=== PATIENT | female | born 1990 ===

== ENCOUNTER 2021-07-03 08:52 | Emergency (ER) | payer BC, MEDICAID ==
[~2021-07-03] VITALS: Ht 175.3 cm; Wt 111.4 kg
[2021-07-03 10:16] VITALS: TEMP 98.8
[2021-07-03 10:49] LABS: BASO % 0.9 % (0.0-2.0); EOS # 0.1 (0.0-0.7); EOS % 2.3 % (0-4.0); GRAN # 2.2 (1.4-6.5); GRAN % 51.1 % (42.2-75.2); HEMOGLOBIN 13.8 g/dl (12.5-16.0); LYMPH # 1.6 (1.2-3.4); LYMPH % 36.7 % (20.0-51.0); MEAN CELL VOLUME 86 fl (80.0-100.0); MEAN CORPUSCULAR HEMOGLOBIN 28 pg (27.0-31.0); MEAN CORPUSCULAR HGB CONC 32 g/dl (33.0-37.0); MEAN PLATELET VOLUME 9.5 fl (7.4-10.4); MONO # 0.4 (0.1-0.6); MONO % 8.8 % (1.7-9.3); PLATELET COUNT 267 K/mm3 (130-400); RED BLOOD COUNT 5.02 M/mm3 (4.10-5.30); REDCELL DISTRIBUTION WIDTH-CV 13.1 % (11.5-14.5)
[2021-07-03 10:55] LABS: MUCOUS Present /lpf; PH 6 (5-8); URINE APPEARANCE Cloudy; URINE BACTERIA Rare /hpf; URINE BILIRUBIN Negative (NEGATIVE); URINE BLOOD Negative (NEGATIVE); URINE COLOR Yellow; URINE GLUCOSE Negative (NEGATIVE); URINE KETONE Negative (NEGATIVE); URINE LEUKOCYTE ESTERASE 2+ (NEGATIVE); URINE NITRATE Negative (NEGATIVE); URINE PROTEIN(semi-quant) Negative (NEGATIVE); URINE UROBILINOGEN Negative (NEGATIVE); URINE WBC 0-2 /hpf
[2021-07-03 11:00] LABS: ALBUMIN 4.3 gm/dL (3.5-5.0); BILIRUBIN,TOTAL 0.4 mg/dL (0.0-1.0); CALCIUM 9.2 mg/dL (8.4-10.2); CREATININE, serum 0.64 (0.52-1.25); POTASSIUM 3.9 mmol/L (3.4-5.0); TOTAL PROTEIN 8.2 gm/dL (6.4-8.2)
[2021-07-03 11:01] LABS: COLLECTION METHOD CLEAN CATCH
[2021-07-03] MEDS ORDERED: ULTRAM 50MG TAB50 MG PO (14:09)
[2021-07-03] MEDS ORDERED: ZOFRAN 4MG T4 MG/TAB PO (14:09)
[2021-07-03 15:00] VITALS: BP 134/87; PULSE 72
== END 2021-07-03 15:00 | disposition home or self-care (01) ==
LOC: COL.ER 08:52
PROVIDERS: Nurse Practitioner Primary Care
DX: K80.20 Calculus of gallbladder without cholecystitis without obstruction (principal); Z32.02 Encounter for pregnancy test, result negative; Z20.822 Contact with and (suspected) exposure to COVID-19
CPT/HCPCS: J1885; Q9967

== ENCOUNTER 2021-07-20 08:19 | Day surgery (SDC) | payer MEDICAID ==
[2021-07-20] VITALS (7 sets, daily range): BP systolic 103–134; BP diastolic 63–84; PULSE 59–78; TEMP 97.6–98.3
[~2021-07-20] VITALS: Ht 175.3 cm; Wt 111.2 kg
[~2021-07-20 08:19] MED LIST: ULTRAM 50MG TAB50 MG PO; ZOFRAN 4MG T4 MG/TAB PO
[2021-07-20] MEDS ORDERED: NORCO 325 MG-51 TAB PO (11:23)
--- NOTE | 2021-07-20 12:25 | NUR ---
Pt to [facility] [place] bay [facility] via cart from PACU. Pt drowsy, but awake. Pt c/o pain to mid upper stomach. Pt states "mucho." Pt's sister at bedside. Pt restless in bed. Bandaids x4 to abdomen are clean, dry and intact. Will continue to monitor. Call light within reach.
--- NOTE | 2021-07-20 12:40 | NUR ---
Fentanyl 25mcg IVSP given for pain per PRN orders. Pt turned to left side for comfort. Will continue to monitor.
--- NOTE | 2021-07-20 12:55 | NUR ---
Pt reports pain is "better." Pt taking sips of water without difficulties. Call light within reach.
--- NOTE | 2021-07-20 13:10 | NUR ---
Pt up to restroom with stand by assistance. Pt voids without difficulties. Pt back to room and became nauseated and started dry heaving. Pt assisted to laying down. Will provide medication.
--- NOTE | 2021-07-20 13:30 | NUR ---
Zofran 4mg IV given for nausea. Pt resting in bed. Call light within reach.
--- NOTE | 2021-07-20 14:00 | NUR ---
Pt continues to rest. Pt taking applesauce without difficulties. Will continue to monitor.
--- NOTE | 2021-07-20 14:15 | NUR ---
[place] 5mg/325mg 1 tablet po given per PRN orders for pain. Will continue to monitor. Call light within reach.
--- NOTE | 2021-07-20 14:30 | NUR ---
Pt asking to go home. Will provide discharge instructions. Call light within reach.
--- NOTE | 2021-07-20 14:50 | NUR ---
Discharge instructions reviewed. Pt and sister voice understanding. Pt up to dress. Call light within reach. IV site discontinued with all parts intact.
--- NOTE | 2021-07-20 15:00 | NUR ---
Pt escorted to private car via wheel chair. Pt accompanied home by her sister.
== END 2021-07-20 15:00 | disposition home or self-care (01) ==
LOC: SDCO 08:19
PROVIDERS: Surgery
DX: K80.12 Calculus of gallbladder with acute and chronic cholecystitis without obstruction (principal); E66.9 Obesity, unspecified; Z68.36 Body mass index [BMI] 36.0-36.9, adult; Z20.822 Contact with and (suspected) exposure to COVID-19
CPT/HCPCS: J0690; J1100; J1170; J1885; J2405; J2550; J2704; J3010; J7120

== ENCOUNTER 2022-07-08 05:27 | Emergency (ER) | payer MEDICAID ==
[~2022-07-08] VITALS: Ht 175.3 cm; Wt 118.2 kg
[~2022-07-08 05:27] MED LIST changes: +NORCO 325 MG-51 TAB PO
[2022-07-08 05:30] VITALS: TEMP 96.8
[2022-07-08 05:41] LABS: BASO # 0.1 K/mm3 (0.0-0.2); BASO % 0.9 % (0.0-2.0); EOS # 0.2 K/mm3 (0.0-0.7); EOS % 3.3 % (0.0-4.0); GRAN # 1.9 K/mm3 (1.4-6.5); GRAN % 34.5 % (42.2-75.2); HEMATOCRIT 43.4 % (37.0-47.0); HEMOGLOBIN 13.9 g/dl (12.5-16.0); LYMPH # 2.8 K/mm3 (1.2-3.4); LYMPH % 50.8 % (20.0-51.0); MEAN CELL VOLUME 86 fl (80.0-100.0); MEAN CORPUSCULAR HEMOGLOBIN 28 pg (27-31); MEAN CORPUSCULAR HGB CONC 32 g/dl (33.0-37.0); MEAN PLATELET VOLUME 9.2 fl (7.4-10.4); MONO # 0.6 K/mm3 (0.1-0.6); MONO % 10.1 % (1.7-9.3); PLATELET COUNT 336 K/mm3 (130-400); RED BLOOD COUNT 5.05 M/mm3 (4.10-5.30); REDCELL DISTRIBUTION WIDTH-CV 12.3 % (11.5-14.5)
[2022-07-08 06:03] LABS: ALBUMIN 3.7 gm/dL (3.5-5.0); BILIRUBIN,TOTAL 0.3 mg/dL (0.2-1.2); C-REACTIVE PROTEIN 0.11 mg/dL (0.00-0.50); CREATININE, serum 0.79 mg/dL (0.57-1.11); POTASSIUM 3.6 mmol/L (3.5-4.5); TOTAL PROTEIN 7.3 gm/dL (6.2-8.1)
[2022-07-08 06:37] LABS: COLLECTION METHOD CLEAN CATCH
[2022-07-08 06:56] LABS: MUCOUS Present (NOT PRESENT); URINE BACTERIA Rare /hpf (NONE SEEN); URINE CALCIUM OXALATE CRYSTAL Present (NOT PRESENT)
[2022-07-08 06:57] LABS: URINE APPEARANCE Clear (CLEAR/HAZY); URINE COLOR Yellow (YELLOW); URINE GLUCOSE Negative (NEGATIVE); URINE KETONE Negative (NEGATIVE); URINE PROTEIN(semi-quant) Negative (NEGATIVE)
[2022-07-08 06:58] LABS: URINE BLOOD TRACE-INTACT (NEGATIVE); URINE NITRATE Negative (NEGATIVE); URINE UROBILINOGEN 0.2 E.U/dL (0.2-1.0)
[2022-07-08] MEDS ORDERED: ROXICODONE 55 MG/TAB PO (08:48)
[2022-07-08 08:50] VITALS: BP 116/83; PULSE 82
== END 2022-07-08 08:58 | disposition home or self-care (01) ==
LOC: COL.ER 05:27
PROVIDERS: Family Medicine
DX: N13.2 Hydronephrosis with renal and ureteral calculous obstruction (principal); Z90.49 Acquired absence of other specified parts of digestive tract; Z32.02 Encounter for pregnancy test, result negative; Z28.310 Unvaccinated for COVID-19
CPT/HCPCS: J1885; J2270; J2405; J7120; Q9967

== ENCOUNTER → 2022-09-11 | Outpatient (CLI) | payer MEDICAID ==
[~2022-09-11] MED LIST changes: +ROXICODONE 55 MG/TAB PO
== END ==
LOC: COL.RAD 15:51
DX: M54.50 Low back pain, unspecified (principal)

== ENCOUNTER 2023-08-31 19:46 | Emergency (ER) | payer MEDICAID ==
[~2023-08-31] VITALS: Ht 175.3 cm; Wt 120.9 kg
[2023-08-31 19:51] VITALS: TEMP 98.4
[2023-08-31 20:30] LABS: BASO # 0.1 K/mm3 (0.0-0.2); EOS # 0.3 K/mm3 (0.0-0.7); EOS % 4.9 % (0.0-4.0); GRAN # 1.9 K/mm3 (1.4-6.5); GRAN % 32.9 % (42.2-75.2); HEMATOCRIT 43.2 % (37.0-47.0); HEMOGLOBIN 13.8 g/dl (12.5-16.0); LYMPH # 2.9 K/mm3 (1.2-3.4); LYMPH % 50.7 % (20.0-51.0); MEAN CELL VOLUME 87 fl (80.0-100.0); MEAN CORPUSCULAR HEMOGLOBIN 28 pg (27-31); MEAN CORPUSCULAR HGB CONC 32 g/dl (33.0-37.0); MEAN PLATELET VOLUME 9.7 fl (7.4-10.4); MONO # 0.6 K/mm3 (0.1-0.6); MONO % 10.3 % (1.7-9.3); PLATELET COUNT 323 K/mm3 (130-400); RED BLOOD COUNT 4.97 M/mm3 (4.10-5.30); REDCELL DISTRIBUTION WIDTH-CV 12.5 % (11.5-14.5)
[2023-08-31 20:49] LABS: ALANINE AMINOTRANSFERASE 23 U/L (0-55); ALBUMIN 3.7 gm/dL (3.5-5.0); ALKALINE PHOSPHATASE 55 U/L (40-150); ANION GAP 9 mmol/L (7-16); AST,SGOT 17 U/L (5-34); BILIRUBIN,TOTAL 0.4 mg/dL (0.2-1.2); BLOOD UREA NITROGEN 10 mg/dL (7-19); CARBON DIOXIDE 22 mmol/L (22-29); CHLORIDE 110 mmol/L (98-107); GLUCOSE 102 mg/dL (70-99); POTASSIUM 3.8 mmol/L (3.5-4.5); SODIUM 141 mmol/L (136-145); TOTAL PROTEIN 7.7 gm/dL (6.2-8.1)
[2023-08-31 20:56] LABS: TROPONIN-I < 0.010 ng/mL (0.00-0.033)
[2023-08-31] MEDS ORDERED: PEPCID 20MG TAB20 MG PO (21:17)
[2023-08-31 22:19] VITALS: BP 133/86; PULSE 66
== END 2023-08-31 22:19 | disposition home or self-care (01) ==
LOC: COL.ER 19:46
PROVIDERS: Emergency Medicine
DX: R07.2 Precordial pain (principal)
CPT/HCPCS: J1885

== ENCOUNTER 2023-09-12 10:48 | Emergency (ER) | payer MEDICAID ==
[~2023-09-12] VITALS: Ht 175.3 cm; Wt 120.5 kg
[~2023-09-12 10:48] MED LIST changes: +PEPCID 20MG TAB20 MG PO
[2023-09-12 11:17] LABS: BASO # 0.1 K/mm3 (0.0-0.2); BASO % 1.1 % (0.0-2.0); EOS # 0.2 K/mm3 (0.0-0.7); EOS % 3.8 % (0.0-4.0); GRAN # 2.6 K/mm3 (1.4-6.5); GRAN % 49.5 % (42.2-75.2); HEMATOCRIT 43.3 % (37.0-47.0); HEMOGLOBIN 14.2 g/dl (12.5-16.0); LYMPH # 1.8 K/mm3 (1.2-3.4); LYMPH % 34.2 % (20.0-51.0); MEAN CELL VOLUME 86 fl (80.0-100.0); MEAN CORPUSCULAR HEMOGLOBIN 28 pg (27-31); MEAN CORPUSCULAR HGB CONC 33 g/dl (33.0-37.0); MEAN PLATELET VOLUME 9.3 fl (7.4-10.4); MONO # 0.6 K/mm3 (0.1-0.6); MONO % 11.2 % (1.7-9.3); PLATELET COUNT 297 K/mm3 (130-400); RED BLOOD COUNT 5.02 M/mm3 (4.10-5.30); REDCELL DISTRIBUTION WIDTH-CV 12.4 % (11.5-14.5)
[2023-09-12 11:35] LABS: ALANINE AMINOTRANSFERASE 28 U/L (0-55); ALKALINE PHOSPHATASE 53 U/L (40-150); ANION GAP 11 mmol/L (7-16); AST,SGOT 20 U/L (5-34); BILIRUBIN,TOTAL 0.5 mg/dL (0.2-1.2); BLOOD UREA NITROGEN 13 mg/dL (7-19); CALCIUM 9.8 mg/dL (8.4-10.2); CARBON DIOXIDE 23 mmol/L (22-29); CHLORIDE 104 mmol/L (98-107); CREATININE, serum 0.81 mg/dL (0.57-1.11); GLUCOSE 93 mg/dL (70-99); POTASSIUM 3.9 mmol/L (3.5-4.5); SODIUM 138 mmol/L (136-145); TOTAL PROTEIN 8.1 gm/dL (6.2-8.1)
[2023-09-12 11:41] LABS: TROPONIN-I < 0.010 ng/mL (0.00-0.033)
[2023-09-12 12:36] VITALS: BP 128/92; PULSE 91; TEMP 98.7
== END 2023-09-12 12:36 | disposition home or self-care (01) ==
LOC: COL.ER 10:48
PROVIDERS: Physician Assistant
DX: R07.2 Precordial pain (principal); I10 Essential (primary) hypertension
CPT/HCPCS: J1885